=== PATIENT | male | born 1965 | race Caucasian/White ===

== ENCOUNTER 2020-09-06 13:31 | Emergency (ER) | payer SELFPAY ==
[2020-09-06 13:41] VITALS: BP 127/75; BP 149/85; PULSE 62; PULSE 99; RESP 20; TEMP 37.4; O2SAT 97; BMI 20.7
--- NOTE | 2020-09-06 13:48 | ED.GENADULT ---
HPI - General Adult General Chief complaint: General Medical Stated complaint: CHILLS,FEVER,?COVID Time Seen by Provider: 09/06/20 13:48 Source: EMS Limitations: no limitations History of Present Illness HPI narrative: 55-year-old male who otherwise denies any significant past medical history presenting with his parents requesting COVID-19 test states that he has been taking care of his parents who had some URI symptoms of cough congestion for the past week or so over the past several days he develops some mild cough body aches loss of taste. Denies any chest pain or shortness of breath. No headache. Onset (ago): day(s) Radiation: non-radiation Relieving factors: none Treatments prior to arrival: none Related Data Allergies Allergy/AdvReac Type Severity Reaction Status Date / Time No Known Allergies Allergy Unverified 06/06/20 15:18 Review of Systems Review of Systems: Constitutional: No Weight loss, No Fever, + Chills, No Night Sweats, No Fatigue, No Malaise ENT/Mouth: No Hearing loss, No Ear Pain, + Nasal Congestion, No Sinus Pain, No Hoarseness, No sore throat, + Rhinorrhea, No Swallowing Difficulty Eyes: No Eye Pain, No Swelling, No Redness, No Foreign Body, No Discharge, No Vision Changes Cardiovascular: No Chest Pain, No SOB, No Dyspnea on Exertion, No Orthopnea, No Edema, No Palpitations Respiratory: No Cough, No Sputum, No Wheezing, No Smoke Exposure, No Dyspnea Gastrointestinal: No Nausea, No Vomiting, No Diarrhea, No Constipation, No abdominal Pain, No Hematochezia, No Melena Genitourinary:No Dysuria, No Urinary Frequency, No Hematuria, No Urinary Incontinence Musculoskeletal: No joint pain, + Myalgias, No Joint Swelling Skin: No Skin Lesions, No rash Neuro: No Weakness, No Numbness, No Paresthesias, No Loss of Consciousness, No Dizziness, No Headache Psych: No Social Issues Heme/Lymph: No Bruising, No Bleeding,No Lymphadenopathy Endocrine: No Polyuria, No Polydipsia, No Temperature Intolerance PMF Past Medical History Medical History (Updated 09/06/20 @ 15:25 by Jt Rainey NP) High cholesterol Social History Social History Advance Directives: No Advance Directives Information Provided: No Physical Exam Vital Signs: Vital Signs: Last Vital Signs Temp 99.4 F 09/06/20 13:41 Pulse 99 09/06/20 13:41 Resp 20 09/06/20 13:41 BP 149/85 H 09/06/20 13:41 Pulse Ox 97 09/06/20 13:41 Body Mass Index 20.7 Reviewed Const: General: cooperative and healthy appearing; No acute distress or intoxicated appearing Nutritional Appearance: average body habitus Orientation/consciousness: patient oriented x3 HENMT: Head: Yes normal to inspection Ears: hearing grossly normal bilaterally Eyes: General: appearance normal, both eyes and all related structures Visual Chacon: normal visual chacon by confrontation Neck: Neck: Yes normal visual inspection, No positive Brudzinski's sign, No positive Kernig's sign and No tender Thyroid: Thyroid normal Chest: Chest palpation & inspection: normal inspection of the chest Resp: Effort & Inspection: normal respiratory effort Auscultation: clear to auscultation bilaterally Cardio: Jugular venous distension: no JVD Rate: regular rate Rhythm: regular rhythm Heart sounds: S1 normal heart sound present and S2 normal heart sound present GI: Inspection: Yes normal to inspection Percussion: Yes normal to percussion Auscultation: normal bowel sounds : General: Yes no CVA tenderness Back/Spine/Pelvis: Back: no CVA tenderness Skin: General skin exam: no rashes or lesions noted Neuro: General: patient oriented x3 Extrem: General: Yes normal to inspection Course Course Course Narrative: Well nontoxic appearing. Hemodynamically stable. Mostly here seeking COVID-19 test. Exam essentially unremarkable. Will do COVID test discharge clear precautions and follow-up instructions. Medical Decision Making Lab Data Labs: Lab Results 09/06/20 Range/Units 14:07 Coronavirus (PCR) POSITIVE A (Negative) Influenza Type A (PCR) NEGATIVE (Negative) Influenza Type B (PCR) NEGATIVE (Negative) RSV RNA Qual (PCR) NEGATIVE (Negative) Discharge Plan Discharge Clinical Impression: COVID-19 Patient Disposition: Home, Self-Care Instructions: COVID-19 (Coronavirus Disease 2019) (ED) Additional Instructions: Self-isolation Social distancing Supportive care as reviewed Isolates him for at least 14 days and at least 2 days symptom-free Return to emergency room if any worsening symptoms including fever, chest pain or shortness of breath Monitor home oxygen level on a home oxygen monitor as discussed Typically people will start seeing improvement in several days if symptoms are relatively mild as it is with majority of cases Follow the guidelines as provided to you by the CDC Thank you Referrals: Physician,Unknown [Primary Care Provider] - 1 week (Phone visit with her primary care doctor)
[2020-09-06 14:53] LABS: Influenza A PCR NEGATIVE (Negative); Influenza B PCR NEGATIVE (Negative); Resp Syncy Virus RNA Qual PCR NEGATIVE (Negative); SARS COV2 PCR INHOUSE POSITIVE (Negative)
== END 2020-09-06 15:40 | disposition home or self-care (01) ==
PROVIDERS: Nurse Practitioner Primary Care; Emergency Provider Emergency Medicine Emergency Medical Services
DX: U07.1 COVID-19 (principal)
CPT/HCPCS: 0241U; 99283